=== PATIENT | male | born 1970 | race Caucasian/White ===

== ENCOUNTER 2017-04-19 20:07 | Emergency (ER) | payer BC, MEDICAID ==
[~2017-04-19] VITALS: Ht 172.7 cm; Wt 81.6 kg
[2017-04-19] MEDS ORDERED: ONDANSETRON HCL/PF 4 MG/2 ML VIAL IVP ONE (20:30)
[2017-04-19] MEDS ORDERED: hydrALAZINE HCL IV 20 MG VIAL IV ONE ×2 (20:30→21:30)
[2017-04-19] MEDS ORDERED: LIDOCAINE 2% JEL UROJET 10 ML MM ONE (20:30)
[2017-04-19] MEDS ORDERED: PANTOPRAZOLE 40 MG VIAL IV ONE (20:30)
[2017-04-19] MEDS ORDERED: IV NS 0.9% 1,000 ML BAG IV ONE (20:30)
[2017-04-19] MEDS ORDERED: MAG HYDROX/AL HYDROX/SIMETH 30 ML UDC PO ONE (20:30)
[2017-04-19 20:41] LABS: BASOPHILS # (AUTO) 0.1 /CMM (0.0-0.2); BASOPHILS % (AUTO) 1.1 % (0.0-2.0); EOSINOPHILS # (AUTO) 0.2 /CMM (0.0-0.7); EOSINOPHILS % (AUTO) 2.1 % (0.0-6.0); HEMATOCRIT 46 % (39-51); HEMOGLOBIN 16.3 g/dL (13.5-17.5); LYMPHOCYTES # (AUTO) 2.9 /CMM (0.8-4.8); LYMPHOCYTES % (AUTO) 37.2 % (20.0-44.0); MEAN CORPUSCULAR HEMOGLOBIN 33 PG (26.0-33.0); MEAN CORPUSCULAR HGB CONC 35 g/dl (31.0-36.0); MEAN CORPUSCULAR VOLUME 94 fL (80-96); MONOCYTES # (AUTO) 0.3 /CMM (0.1-1.30); MONOCYTES % (AUTO) 3.8 % (2.0-12.0); NEUTROPHILS # (AUTO) 4.2 /CMM (1.8-8.9); NEUTROPHILS % (AUTO) 55.8 % (43.0-81.0); PLATELET COUNT (AUTO) 275 /CMM (150-450); RDW COEFFICIENT OF VARIATION 12.3 (11.5-15.0); RED BLOOD CELL COUNT(AUTO) 4.92 MIL/uL (4.5-6.0); WHITE BLOOD COUNT (AUTO) 7.7 K/uL (4.3-11.0)
[2017-04-19 21:00] LABS: TROPONIN I < 0.017 ng/mL (0.00-0.056)
[2017-04-19] MEDS ORDERED: hydrALAZINE HCL IV 20 MG VIAL ONE ×2 (21:06→21:58)
[2017-04-19] MEDS ORDERED: PANTOPRAZOLE 40 MG VIAL ONE (21:06)
--- NOTE | 2017-04-19 21:30 | NUR ---
46 Y/O MALE PLACED IN BED 1 C/O HEAD PAIN. PT BLOOD PRESSURE ELEVATED.
[2017-04-19] MEDS ORDERED: ONDANSETRON HCL/PF 4 MG/2 ML VIAL ONE (21:57)
[2017-04-19] MEDS ORDERED: MAG HYDROX/AL HYDROX/SIMETH 30 ML UDC ONE (21:58)
[2017-04-19 22:22] LABS: CHLORIDE 103 mmol/L (98-107); SODIUM SERUM 141 mmol/L (136-145)
[2017-04-19 22:23] LABS: CALCIUM, SERUM 8.8 mg/dL (8.5-10.1); CARBON DIOXIDE 19 mmol/L (21-32); CREATININE 0.9 mg/dL (0.6-1.3); GLUCOSE 161 mg/dL (74-106); UREA NITROGEN, BLOOD 15 mg/dL (7-18)
[2017-04-19 22:24] LABS: POTASSIUM 2.8 mmol/L (3.5-5.1)
[2017-04-19] MEDS ORDERED: POTASSIUM CHLORIDE 20 MEQ TAB.PRT.SR PO ONE ×3 (22:30→22:45)
[2017-04-19 22:34] LABS: ALANINE AMINOTRANSFERASE 68 U/L (12-78); ALBUMIN 3.7 g/dL (3.4-5.0); ALKALINE PHOSPHATASE 97 U/L (46-116); BILIRUBIN,DIRECT 0.2 mg/dL (0.0-0.2); BILIRUBIN,TOTAL 0.7 mg/dL (0.2-1.0)
[2017-04-19 22:35] LABS: LIPASE 218 U/L (73-393); TOTAL PROTEIN, SERUM 7.5 g/dL (6.4-8.2)
[2017-04-19 22:45] LABS: ASPARTATE AMINOTRANSFERASE 61 U/L (15-37)
--- NOTE | 2017-04-19 23:15 | NUR ---
PT MEDICATED MULTIPLE TIMES WITH HYDRALAZINE. BP DECREASED. HEAD PAIN RESOLVED. LABS ARE NORMAL. PT DISCHARGED HOME TO FOLLOW UP WITH PMD FOR BLOOD PRESSURE MANAGEMENT.
[2017-04-20 03:24] VITALS: BP 164/101
== END 2017-04-19 23:45 | disposition home or self-care (01) ==
LOC: ER 20:13
DX: R10.13 Epigastric pain (principal); F10.10 Alcohol abuse, uncomplicated; I10 Essential (primary) hypertension; F17.200 Nicotine dependence, unspecified, uncomplicated
CPT/HCPCS: 36415; 71045; 80048; 80076; 83690; 84484; 85025; 93005; 96361; 96374; 96375; 96376; 99285; A4606; C9113 ×2; J0360 ×4; J2405 ×2; Z7610